=== PATIENT | male | born 1995 | race Caucasian/White ===

== ENCOUNTER 2017-06-08 06:16 | Day surgery (SDC) | payer OTHER ==
[2017-06-08] MEDS ORDERED: MIDAZOLAM 2 MG/2 ML INJ ONE (07:01)
[2017-06-08] MEDS ORDERED: FENTANYL CITRATE INJ/PF 250 MCG/5 ML AMPULE ONE (07:01)
[2017-06-08] MEDS ORDERED: ACETAMINOPHEN 100 ML IV ONE (07:01)
[2017-06-08] MEDS ORDERED: ONDANSETRON HCL INJ/PF 4 MG/2 ML SDV ONE (07:01)
[2017-06-08] MEDS ORDERED: DEXAMETHASONE SOD PHOS INJ 10 MG/1 ML VIAL ONE (07:01)
[2017-06-08] MEDS ORDERED: SUCCINYLCHOLINE CHLORIDE INJ 200 MG/10 ML VIAL ONE (07:02)
[2017-06-08] MEDS ORDERED: PROPOFOL INJ 200 MG/20 ML VIAL IV ONE (07:02)
[2017-06-08] MEDS ORDERED: LIDOCAINE 0.5% INJ-PF (5 MG/ML) 50 ML SDV ONE ×2 (07:02→07:05)
[2017-06-08] MEDS ORDERED: LIDOCAINE 2% INJ-PF (100 MG/5 ML) SYRINGE ONE (07:04)
[2017-06-08] MEDS ORDERED: ACETAMINOPHEN 325 MG TABLET ONE ×2 (08:23)
[2017-06-08] MEDS ORDERED: IBUPROFEN SUSP 100 MG/5 ML ORAL SYRINGE ONE ×2 (08:24→08:25)
--- NOTE | 2017-06-08 11:23 | OPERATIVE REPORT E ---
Operative Report NAME: CASEY LUCAS : 1995 AGE: 21Y DATE OF SURGERY: 06/08/2017 ROOM: PREOPERATIVE DIAGNOSIS: Chronic tonsillitis, tonsillar hypertrophy. POSTOPERATIVE DIAGNOSIS: Chronic tonsillitis, tonsillar hypertrophy. OPERATION PERFORMED: Tonsillectomy. SURGEON: SULEMA HERNANDEZ M.D. ASSEMBLER MOTOR VEHICLE: None. ANESTHESIA: General, Dr. Isadora Jameson with [facility] CRNA. PREOP NOTE: This is a 21-year-old young [employer] who has a long history of chronic tonsillitis with tonsilloliths and halitosis. He now comes for a definitive tonsillectomy. The patient was seen and identified in the preop holding area. A discussion took place with the patient and his with regards to postoperative care. The patient was then taken back to the operating room, placed in a supine position, general anesthesia was induced, and an oral endotracheal tube was placed. The patient was appropriately positioned and draped into the Cathy position. A short time out then took place and all issues relating to the patient's identity, the procedure to be performed, and the risks attendant thereto and the positioning on the table were all discussed and there were no masses arising. The Ravi-Sukhwinder gag was then inserted with care and expanded, and the anatomy of the lips, mouth, tongue, teeth, palate and pharynx was inspected and found to be normal. Palpation of the soft palate failed to reveal a submucous cleft. Mirror examination was made of the nasopharynx and no abnormality was noted. Each tonsil was then grasped in turn with a curved tenaculum and medialized. An incision was made well behind the anterior pillar using spatula tip electrocautery set at 25 on cutting current. This instrument was then used for blunt dissection of the tonsil, coagulating feeding blood vessels as they came into view at 55 on coagulating current. The spatula tip electrocautery at 55 on coagulating current was also utilized to transect the inferior pole on each side, and in this way the tonsils were resected in an essentially bloodless fashion. These were then handed off separately to the circulating nurse for transfer to the pathology department for histological examination. Touch-up bleeding points were secured with suction electrocautery. Following this the Ravi-Sukhwinder gag was collapsed for a whole minute and then re-expanded again and no more bleeding could be seen and, therefore, the airways and nasopharynx were suctioned, the Ravi-Sukhwinder gag was taken out, and the patient was extubated, light, and transferred to the PACU in good condition, having tolerated the procedure well. Estimated blood loss was 5 mL. Replacement was with 600 mL of lactated Ringer. There were no complications. No untoward events. DICTATING PHYSICIAN: SULEMA HERNANDEZ M.D. [id number] PHY#: [id number] ID: [id number] JOB#: [id number] ACCT: [id number] cc:SULEMA HERNANDEZ M.D. >
== END 2017-06-08 09:18 | disposition home or self-care (01) ==
LOC: SC 06:16
PROVIDERS: ATTEND Otolaryngology
PROC: 0CTPXZZ Resection of Tonsils, External Approach (ICD-10-PCS; principal; 2017-06-08 07:30)
DX: J35.8 Other chronic diseases of tonsils and adenoids (principal); R19.6 Halitosis; J35.1 Hypertrophy of tonsils
CPT/HCPCS: 88304 ×2; 42826; J2250; J3010; J3490; J0330; J2405; J2704; J1100; J0131; 170; J2001